=== PATIENT | female | born 1960 | race Caucasian/White ===

== ENCOUNTER 2024-07-19 03:33 | Emergency (ER) | payer BC, SELFPAY ==
[2024-07-19 03:43] VITALS: BP 132/74
[2024-07-19 04:13] LABS: Urine Albumin Negative (Neg - Trace); Urine Bilirubin Negative (Negative); Urine Character Very Cloudy (Clear); Urine Color Yellow; Urine Glucose Negative (Negative); Urine Ketone 1+ (Negative); Urine Leukocyte Negative (Negative); Urine Nitrite Negative (Negative); Urine Occult Blood Negative (Negative); Urine Urobilinogen Negative (Neg - 1+)
[2024-07-19 04:26] LABS: % Basophils 0.3 % (0-2); % Eosinophils 0.1 % (0-6); % Immature Granulocytes 0.3 % (0-0.5); % Lymphocytes 7.3 % (20.5-51.1); % Monocytes 7.4 % (1.7-9.3); % Neutrophils 84.6 % (42.2-75.2); Absolute Lymphocytes 0.7 10^3/uL (1.2-3.4); Absolute Monocytes 0.7 10^3/uL (0.1-0.6); Absolute Neutrophils 7.9 10^3/uL (1.4-6.5); Hematocrit 37.6 % (37.0-47.0); Hemoglobin 12.9 g/dL (12.0-16.0); Mean Corp Hgb Conc. 34.3 g/dL (33.0-37.0); Mean Corpuscular Hgb 31.8 pg (27.0-31.0); Mean Corpuscular Volume 92.6 fL (81.0-99.0); Mean Platelet Volume 9.2 fL (7.4-10.4); Nucleated Red Blood Cells % 0 %; Platelet Count 250 10^3/uL (130-400); Red Blood Cell Count 4.06 10^6/uL (4.20-5.40); Red Cell Dist. Width 12.2 % (11.5-14.5); White Blood Cell Count 9.3 10^3/uL (4.8-10.8)
[2024-07-19 04:36] LABS: ALT (SGPT) 17 U/L (0-35); AST (SGOT) 27 U/L (14-36); Albumin 4.4 g/dl (3.5-5.0); Alkaline Phosphatase 84 U/L (38-126); Blood Urea Nitrogen 12 mg/dl (7-17); Calcium 9.6 mg/dl (8.4-10.2); Carbon Dioxide 27 mmol/L (22-30); Chloride 101 mmol/L (98-107); Glucose 139 mg/dl (70-99); Lipase 51 U/L (23-300); Potassium 4.1 mmol/L (3.5-5.1); Sodium 138 mmol/L (135-145); Total Bilirubin 0.8 mg/dl (0.2-1.3); Total Protein 6.7 g/dl (6.3-8.2); eGFR > 60.00
--- NOTE | 2024-07-19 07:29 | ED.GENMED ---
History of Present Illness
General
Chief Complaint: Abdominal Pain
Source: patient
Exam Limitations: none
Time Seen by Provider: 07/19/24 07:03
Nursing documentation reviewed up to this point in time: agreed with
History of Present Illness
History of Present Illness:
pt is a 63 y/o F with no chronic medical problems
says she started feeling not well around 5 pm yhesterday gradually with abdominal pain, seemed RUQ and then moved across to upper abdomen and generalized abdomen and then she voited thorugh the night x 6
pain is also radiating into her lower back
no fever/chills, diarrhea, bloody or black stool
she has not had GERD/gastritis before
tried tums at home without relief
has never had elvira like this before
no known gallbladder problems
no urinary sypmtoms
Past History
Past History
ED Past Medical History: None
ED Past Surgical History: None
Social History
Tobacco: Non-smoker
Alcohol: None
Drug: None
Personal:
Living: with family
Review of Systems
Review of Systems
Allergies reviewed?: Yes
All Other Systems: Not applicable
Phy Exam
Physical Exam
Physical Exam:
GENERAL: Alert , uncomfortable
EYE: pupils equal and reactive
NECK: Supple
ENT: o/p clr, mmm.
CARDIAC: Regular rate and rhythm .
LUNGS: Clear breath sounds bilaterally, no acute respiratory distress, no wheezes/rales/rhonchi
ABDOMEN: Soft, mild diffuse tenderness, mostly upper abdomen, no r/g, no cvat, normal bowel sounds
NEUROLOGICAL: Alert and oriented, no focal neuro deficits
SKIN: Warm and dry, skin intact.
MUSCULOSKELETAL: No edema, well perfused.
PSYCH: Normal and appropriate interaction.
Course
Orders/Labs/Results
Orders:
Orders
07/19/24 04:05
Complete Blood Count/With Diff Urgent
Comprehensive Metabolic Panel Urgent
Lipase Urgent
Urinalysis Urgent
Date Specimen was Collected: 07/19/24
Time Specimen was Collected: 03:46
07/19/24 07:15
HYDROmorphone [Dilaudid] 0.5 mg IV NOW STA
Ondansetron Injectable [Zofran] 4 mg IV NOW STA
07/19/24 07:16
0.9% Sodium Chloride 1000 ml [Nss] 1,000 ml IV BOLUS
Iohexol [Omnipaque] See Protocol PO NOW STA
US Abdomen Complete/Upper Urgent
Comment:
Reason For Exam: upper abd pain, vomiting
07/19/24 08:22
CT Abd/pel W Iv And Oral Contr Urgent
Comment:
Reason For Exam: abd pain vomiting x 6;
07/19/24 12:10
Famotidine [Pepcid] 20 mg PO NOW STA
Abnormal Lab Results
07/19/24
04:05
RBC 4.06 L 10^6/uL
(4.20-5.40)
MCH 31.8 H pg
(27.0-31.0)
Absolute Neuts (auto) 7.9 H 10^3/uL
(1.4-6.5)
Absolute Lymphs (auto) 0.7 L 10^3/uL
(1.2-3.4)
Absolute Monos (auto) 0.7 H 10^3/uL
(0.1-0.6)
Neutrophils % 84.6 H %
(42.2-75.2)
Lymphocytes % 7.3 L %
(20.5-51.1)
Glucose 139 H mg/dl
(70-99)
Urine Ketones 1+ A
(Negative)
07/19/24 04:05
07/19/24 04:05
Vital Signs
Initial and Last Documented VS:
Initial Vital Signs
Temp Pulse Resp BP Pulse Ox
36.8 C 84 24 132/74 100
07/19/24 03:43 07/19/24 03:43 07/19/24 03:43 07/19/24 03:43 07/19/24 03:43
Last Documented Vital Signs
Temp Pulse Resp BP Pulse Ox
36.8 C 84 24 115/64 100
07/19/24 03:43 07/19/24 03:43 07/19/24 03:43 07/19/24 10:00 07/19/24 10:30
MDM/Problems Addressed
Differential Diagnosis Includes:
enteritis, GERD, gatsritis, gallstones, colitis
MDM/Problems Addressed:
63 y/o F
upper abd pain last night with n/v x 6
no diarrhea
no fever
pain has moved all over abdomen but started in RUQ
mild lower back sheree
no urinary symptoms
uncomfortable appearing
more pain than tenderness
ng campo's sign
no mcburney's point tenderness
flat abdomen
wbc normal
lifts and lipase normal
urine with ketones
givne iv fluids an dpain meds and zofran an dfeelt much better
US was neg
CT also showed incidental soft tissue mass in the cecum area but normal apependix
pt informed of this for outaptient f/u
pepcid bid
tylenol
light diet
zofran
return precautions
*Critical Care Note
Total Time (30-74mins, 75-104mins- exclusive of procedures): Not Applicable
ED Attending Note
-
Portions of this chart may have been created with voice recognition software.� Occasional wrong word or��sound alike� substitutions may have occurred due to the inherent limitations of voice recognition software.
Discharge Plan
Departure
Patient Disposition: Home (Routine Discharge)
Date of Disposition: 07/19/24
Time of Disposition: 12:03
Patient with high blood pressure during this ER visit?: No
Covid-19: Not Applicable
Discharge Problem:
Vomiting, Abdominal pain
Instructions: Constipation, Adult (DC), Nausea and vomiting in adults - ED discharge instructions, Abdominal Pain
Prescriptions:
New
ondansetron 4 mg tablet,disintegrating
4 mg PO Q8H PRN (Reason: nausea and vomiting) 2 Days Qty: 5 0RF
Referrals:
Sal Hinojosa DO [Family Provider] -
Activity Restrictions/Additional Instructions:
Not sure the cause of your abdominal pain. You could have a virus causing inflammation of your stomach, this is not seen on imaging but treated empirically. You can take Zofran every 8 hours as needed for vomiting and use Pepcid twice a day for a
few days to see if this helps. You do have a moderate amount of stool in your colon which could represent constipation. You can consider taking a stool softener and a dose or 2 of MiraLAX if you continue with crampy abdominal pain to see if this
helps.
Incidentally are not likely the cause of your pain you have what looks like a possible soft tissue mass at the base of your cecum/ileocecal valve which needs further workup. A GI doctor who had performed your colonoscopy can evaluate this. I does
not appear concerning however you should follow-up.
Return for fever and continued vomiting, worsening pain, or any concerns
Interventions
Interventions:
*Risk Screen - Suicide Last Done: 07/19/24 03:43
*Neglect/Abuse Screening Last Done: 07/19/24 03:43
[facility] Assessment Last Done: 07/19/24 08:35
Discharge Date and Time
Print Language: [id number]
[2024-07-19] MEDS: NSS 1000 IV (08:32)
[2024-07-19] MEDS: ZOFRAN 4 MG IV (08:34)
[2024-07-19] MEDS: DILAUDID 0.5 MG IV (08:35)
[2024-07-19] MEDS: OMNIPAQUE 50 ML PO (08:35)
[2024-07-19 09:00] VITALS: BP 97/56
[2024-07-19 10:00] VITALS: BP 115/64
[2024-07-19] MEDS: PEPCID 20 MG PO (12:34)
== END 2024-07-19 12:10 | disposition home or self-care (01) ==
LOC: EMR 03:33
PROVIDERS: Student in an Organized Health Care Education/Training Program; EMERGENCY PHYSICIAN Emergency Medicine; FAMILY PHYSICIAN Family Medicine
DX: R11.2 Nausea with vomiting, unspecified (principal); R10.9 Unspecified abdominal pain; M54.50 Low back pain, unspecified
CPT/HCPCS: 99284; 96374; 96375; 74177; 76700; 80053; 81003; 83690; 85025; Q9967